=== PATIENT | female | born 1975 | race Caucasian/White ===

== ENCOUNTER 2016-12-12 16:53 | Emergency (ER) | payer OTHER ==
[~2016-12-12 16:53] MED LIST: ALBUTEROL17 GM INH; APAP325 MG PO; ASPIRIN81 M2 PO; CLARITIN10 M2 PO; CUBICIN INJ; CUBICIN IV; DAPTOMYCIN IV; FERROUS GLUCON324 MG PO; FLONASE 0.05% N16 GM; GABAPENTIN300 M2 PO; GUAIATUSSIN AC10 ML PO; HYDROCODON-ACE1 EAC7 PO; INVANZ1 G/VIA1 IV; KCL PO; LACTINEX T1 TAB.CHEW PO; LEVAQUIN750 M1 PO; LORTAB 5-325 M1 EACH PO; MORPHINE SULFAT15 MG PO; NEURONTIN300 MG PO; NEURONTIN600 MG PO; NICOTINE TRANSD21 MG EXT; NO DAILY MEDICATIONS; NO MEDICATIONS; OPANA10 MG PO; PHENOL-SODIUM180 M1 PO; POTASSIUM CHLO20 ME1 PO; THIAMINE HCL100 MG PO; VANCOMYCIN HCL125 MG PO; ZOLOFT50 MG PO; ZYVOX600 MG PO
== END 2016-12-12 19:50 | disposition home or self-care (01) ==
LOC: CFTX 16:53 → CED 16:53 → CFTX 18:41
DX: K02.9 Dental caries, unspecified (principal); F17.210 Nicotine dependence, cigarettes, uncomplicated; Z88.1 Allergy status to other antibiotic agents; Z79.899 Other long term (current) drug therapy
CPT/HCPCS: 99283

== ENCOUNTER 2016-12-17 13:47 | Emergency (ER) | payer OTHER | END 2016-12-17 15:00 | disposition home or self-care (01) | LOC: CFTX 13:47 → CED 13:47 → CFTX 14:25 | DX: K04.7 Periapical abscess without sinus (principal); K02.9 Dental caries, unspecified; I10 Essential (primary) hypertension; B19.20 Unspecified viral hepatitis C without hepatic coma; F17.200 Nicotine dependence, unspecified, uncomplicated | CPT/HCPCS: 99282 ==